=== PATIENT | female | born 1970 | race African-American/Black ===

== ENCOUNTER 2019-11-13 08:17 | Day surgery (SDC) | payer OTHER ==
[2019-11-13 08:20] LABS: Urine Appearance CLEAR; Urine Bilirubin NEGATIVE (NEG); Urine Blood 3+ (NEG); Urine Color YELLOW; Urine Glucose NEGATIVE (NEG); Urine Protein NEGATIVE (NEG); Urine Specific Gravity 1.025 (1.005-1.030); Urine Urobilinogen 0.2 mg/dL (0.2-1.0); Urine pH 5.5 (5.0-7.0)
--- OUTSIDE RECORDS SUMMARY | 2019-11-13 08:20 | XMS REPORT ---
:1970 [facility] Address [address] [place] [address] Dr. Cardenas [address] [place] [id number] Care Team Providers Name Role Phone Unavailable Unavailable Unavailable Problems This patient has no known problems. Allergies, Adverse Reactions, Alerts This patient has no known allergies or adverse reactions. Medications This patient has no known medications. Results Test Description Test Time Test Comments Text Results Atomic Results Result Comments LEONIDAS HOUSER, 2019-02-19 07:07:00 FINAL REPORT PATIENT ID: CERVICAL, WITHOUT [id number] EXAMINATION: MRI of IV CONTRAST the cervical spine without contrast HISTORY: Neck pain radiating to the left upper extremity with weaknessCOMPARISON: Cervical spine CT December 31, 2017TECHNIQUE: Sagittal T1, T2, STIR; axial T2, gradient echo. FINDINGS: Curvature: Straightening of the cervical lordosis which may be related to muscle spasm or positionalVertebrae: No evidence of neoplasm, infection, or fracture.Foramen magnum: No mass, Chiari malformation, or basilar invagination. Spinal Cord: Incidentally noted minimal prominence of the spinal ependymal canal at the level of C7 measuring about 1.5 mm diameter. No cord expansion or abnormal signal.Soft Tissues: Unremarkable. Degenerative changes: C1-C2: Unremarkable. C2-C3: Mild facet arthrosis on the left without canal or foraminal stenoses. C3-C4: Unremarkable. C4-C5: Small disc osteophyte complex formation, mild uncovertebral and facet arthroses. No significant canal or foraminal stenoses. C5-C6: Small disc osteophyte compresses formation, bilateral uncovertebral and facet arthroses. Mild spinal canal and moderately severe bilateral foraminal stenoses. C6-C7: Disc osteophyte complex formation, bilateral uncovertebral and facet arthroses. Moderately severe spinal canal and bilateral foraminal stenoses. Compression upon the exiting C7 nerve root cannot be excluded. C7-T1: Bilateral facet arthroses without significant stenoses. IMPRESSION: 1.Mild degenerative spinal canal and moderately severe bilateral neural foraminal stenoses at C5-C6. 2.Moderately severe degenerative spinal canal and bilateral neural foraminal stenoses. Signed: Salbador Cohn MDReport Verified Date/Time: 02/19/2019 07:07:20 Reading Location: [facility] Reading Room [address] [place] [address] , SHOULDER, 2018-12-31 20:37:00 Reason for FINAL REPORT PATIENT ID: COMPLETE (MIN 2 exam:->SHOULDER [id number] History: Left VIEWS), LEFT PAINIs the patient shoulder pain. FINDINGS: ?->NoShoul Left shoulder series, three d this be views: Multiple views of the performed at the left shoulder show no bedside?->No fractures or acute bone abnormalities. Alignment appears normal and the glenohumeral joint is intact. Surrounding soft tissues are unremarkable. IMPRESSION: 1. Negative left shoulder series. Signed: Kaleb Hanson Verified Date/Time: 12/31/2018 20:37:11 Reading Location: [facility] [id number] Consult Reading Room , SPINE, 2018-12-31 19:57:00 FINAL REPORT PATIENT ID: CERVICAL, WO [id number] CT cervical spine CONTRAST without contrast INDICATION: Spinal stenosis, cervical COMPARISON: No priors TECHNIQUE: Multiple axial CT images of the cervical spine were obtained without contrast. Sagittal and coronal 2D reconstructions were provided as well. This exam was performed according to our departmental dose optimization program which includes automated exposure control, adjustment of the mA and/or kV according to patient's size and/or use of iterative reconstructive technique. FINDINGS: Vertebral body height is normal, and alignment is maintained. There is no evidence of acute fracture, or dislocation. Multilevel degenerative changes are present, most pronounced at C5-C6 and C6-C7. There is at moderate appearing central canal stenosis at C6-C7. There is no prevertebral edema. No hematoma or abnormal fluid collection. Visualized paraspinal soft tissues are unremarkable. The thyroid gland is homogeneous. Visualized lung apices are normal. IMPRESSION: No acute fracture or dislocation. Degenerative changes in cervical spine, most pronounced at C5-C6 and C6-C7. Signed: Mary Hernandez Verified Date/Time: 12/31/2018 19:57:33 Reading Location: [facility] C013V Neuro Reading Room , ABDOMEN 2017-11-07 10:09:00 Location->[facility] FINAL REPORT PATIENT ID: [facility] [id number] ABDOMINAL AND PELVIS CT DATED 11/07/2017 CLINICAL INFORMATION: Abdominal pain, unspecified TECHNIQUE: Axial images of the abdomen and pelvis were obtained from diaphragm to the pubic symphysis with GI and intravenous contrast. This exam was performed according to our departmental dose-optimization program, which includes automated exposure control, adjustment of the mA and/or kV according to patient size and/or use of interactive reconstruction technique. COMMENT: Liver and spleen are normal in size without focal abnormality. Gallbladder is contracted. No gallstone or biliary dilatation is noted. Pancreas and adrenals are unremarkable. Both kidneys are normal in size and functioning. No hydronephrosis, solid or cystic mass is seen in either kidney. The opacified small bowel is unremarkable. Large amount fecal material is seen in the large bowel suggestive constipation. Appendix is not visualized. The urinary bladder is contracted. Uterus is not seen. Both ovaries are unremarkable. IMPRESSION: 1. Constipation.2. Otherwise unremarkable CT of the abdomen and pelvis. Signed: Martha Florez Verified Date/Time: 11/07/2017 10:09:56 Reading Location: [facility] C013Y CT Body Reading Room
[2019-11-13 08:25] LABS: Absolute Lymphocytes (CBC) 1.6 K/uL (0.7-4.9); Basophils % 1.2 % (0-1.3); Lymphocytes % 27.9 % (15.3-44.8); MPV 8.8 fL (7.6-11.3); RBC Red Blood Cell Count 4.23 M/uL (3.86-4.86)
[2019-11-13] MEDS ORDERED: VECURONIUM 10 MG/VIAL IV ONE ×2 (08:44→09:01)
[2019-11-13] MEDS ORDERED: SCOPOLAMINE HYDROBROMIDE PATCH TD ONE (08:45)
[2019-11-13] MEDS ORDERED: Ringers Lactate 1,000 ML IV ONE ×3 (08:45→08:52)
[2019-11-13] MEDS ORDERED: CEFAZOLIN/SWI 1gm 1 GM/10 ML SYR ONE (08:46)
[2019-11-13] MEDS ORDERED: NS 0.9% VIAL 50 ML ONE (08:50)
[2019-11-13] MEDS ORDERED: Mastisol Adhesive Liq ONE (08:51)
[2019-11-13] MEDS ORDERED: GENTAMICIN SULF 80 MG/2ML INJ ONE (08:51)
[2019-11-13] MEDS ORDERED: LIDOCAINE 1% W/EPI 1:100,000 MDV 20 ML VIAL ONE (08:51)
[2019-11-13] MEDS ORDERED: CEFAZOLIN SODIUM 1 GM/VIAL ONE (08:51)
[2019-11-13 08:52] LABS: Urine Microscopic Reflex ORDER UMIC
[2019-11-13] MEDS ORDERED: LANO/MINERAL OIL/PETRO 3.5 GM ONE (08:52)
[2019-11-13] MEDS ORDERED: BACITRACIN 50000 UNIT VIAL ONE (08:52)
[2019-11-13 08:56] LABS: Urine Bacteria 20-50 /HPF (<20); Urine Crystals Unidentified FEW (NONE SEEN); Urine Culture Reflex Order REFLEXED
[2019-11-13] MEDS ORDERED: propofoL 200 MG/20 ML VIAL IV ONE (09:05)
[2019-11-13] MEDS ORDERED: dexAMETHasone 10 MG/ML VIAL ONE (09:06)
[2019-11-13] MEDS ORDERED: LIDOCAINE 1% MPF 5 ML VIAL ONE (09:06)
[2019-11-13] MEDS ORDERED: FENTANYL CITR 250 MCG/5 ML ONE (09:06)
[2019-11-13] MEDS ORDERED: NS 0.9% VIAL 10 ML ONE (09:06)
[2019-11-13] MEDS ORDERED: MIDAZOLAM HCL 2 MG/2 ML INJ ONE (09:06)
[2019-11-13] MEDS ORDERED: ONDANSETRON 4 MG/2 ML VIAL ONE ×2 (09:07→12:50)
--- NOTE | 2019-11-13 09:15 | RAD REPORT ---
EXAM DESCRIPTION: RAD - Chest Pa And Lat (2 Views) - 11/13/2019 8:10 am CLINICAL HISTORY: preop, pending breast surgery COMPARISON: None TECHNIQUE: Frontal and lateral views of the chest were obtained. FINDINGS: The lungs are clear. Heart size is normal and central vasculature is within normal limit s. No pleural effusion or pneumothorax seen. No acute bony finding noted. No aortic abnormality. IMPRESSION: No acute cardiopulmonary process.
--- NOTE | 2019-11-13 12:33 | EKG ---
Test Date: 2019-11-13 Test Time: 07:09:18 Dermatologist: LEONA MEASUREMENT RESULTS: Intervals: Rate: 62 MD: 164 QRSD: 82 QT: 416 QTc: 422 [place]: P: 53 MD: 164 QRS: 30 T: 34 INTERPRETIVE STATEMENTS: Normal sinus rhythm Low voltage QRS Borderline ECG No previous ECG available for comparison Electronically Signed On 11-13-19 12:30:53 CDT by Tha Byrne
[2019-11-13] MEDS ORDERED: GLYCOPYRROLATE 0.2 MG/ML SYR ONE (12:50)
[2019-11-13] MEDS ORDERED: NEOSTIGMINE 1 MG/ML -5 ML ONE (12:50)
[2019-11-13] MEDS ORDERED: KETOROLAC 30 MG/ML INJ ONE (12:50)
[2019-11-13] MEDS: HYDROMORPHONE HCL 1 MG/ML INJ ONE ×4 (14:25→14:41)
[2019-11-13] MEDS ORDERED: CODEINE 30MG/APAP 300MG TAB ONE (15:37)
[2019-11-13] MEDS ORDERED: DIPHENHYDRAMINE 25 MG TAB/CAP ONE (15:42)
[2019-11-13 16:35] VITALS: BP 100/68; TEMP 97.3; O2SAT 98
--- NOTE | 2019-11-14 00:49 | OP ---
Surgeon: Jose Alejandro Baxter MD Enzyme Chemist: Charles. Preoperative Diagnosis: Breast descent. Postoperative Diagnosis: Breast descent. Procedure Performed: Breast lift with minor reduction. Anesthesia: General Procedure In Detail: After satisfactory induction of general anesthesia, chest was prepped with DuraPrep and dry sterile drapes applied in the usual manner. A 45 template was used to outline the right and left areolas and the transverse and curvilinear incisions were made. Intervening skin was de-epithelialized with a dermabrader or EpiCut. Then a transverse incision was made with a scalpel and electrocautery. Flap was thinned to 1.3 cm. Flap was elevated toward the sternum, clavicle, anterior axillary line on both sides simultaneously. After this was done, the lateral inferior incision was made. The de-epithelized tissue was formed with a cone. Prior to conization, excess lateral breast tissue was removed and then conization was performed with 2-0 PDS sutures. This was done on both sides. Then straps were elevated at 12 o' clock, 1:30, and 3 o'clock position on the right breast. Straps were then woven in and out of the pectoris major muscle, back to the base of cone, back to pectoralis muscle, back to the base of cone, tied and sewn with 2-0 PDS suture. This is done for both the 12 o'clock and 130 strap. The 3-0 strap was sewn over the sternum at the 3 o'clock position with 2-0 Ethibond. Mirror image was done on the left side. The wounds were then temporarily stapled shut. Sat up asymmetry was identified and then the patient had returned supine. Medial and lateral dog ears were cut off and a 10 THEODORE was brought out of axilla. Wound was irrigated with antibiotic solution and then the wound was closed with 3-0 Vicryl subcu and a 3-0 PDS running subcuticular tied from medial to lateral and lateral to medial, tied in the vertical meridian of the breast. Patient was then sat up. Site for new nipple-areolar complex was marked out. Tissue was cored out and then the nipples delivered, sewn with interrupted 4-0 PDS followed by 4-0 PDS running subcuticular. Dressings consisted of tincture of benzoin, Steri-Strips, 5 x 5s, fluffs, and Octavio wrap. The patient tolerated the procedure well. The amount removed from the right breast was 118 g, left was 78 g. GREG/MEENA Voice ID: [id number] Report ID: [id number] MTDD
== END 2019-11-13 17:15 | disposition home or self-care (01) ==
LOC: OR 08:17
PROVIDERS: ATTEND Specialist
PROC: 0H0V0ZZ Alteration of Bilateral Breast, Open Approach (ICD-10-PCS; 2019-11-13)
PROC: 0H0V0ZZ Alteration of Bilateral Breast, Open Approach (ICD-10-PCS; principal; 2019-11-13 09:00)
DX: N64.81 Ptosis of breast (principal); N62 Hypertrophy of breast
CPT/HCPCS: 19316; 19318; 93005; 87088; 85025; 87086; 36415; 88305; 71046; J2704; J1580; J2250; J3010; J1100; J1170 ×2; J2710; J0690 ×2; J7120 ×2; J2405 ×2; 81003; 81015